=== PATIENT | female | born 1980 | race Caucasian/White ===

== ENCOUNTER 2017-09-27 15:02 | Emergency (ER) | payer SELFPAY ==
[~2017-09-27] VITALS: Ht 160 cm; Wt 54.4 kg
[2017-09-27] MEDS ORDERED: CYCL10 PO (17:17)
[2017-09-27] MEDS ORDERED: IBUP800 PO (17:17)
== END 2017-09-27 17:27 | disposition home or self-care (01) ==
LOC: ER 15:02
DX: F07.81 Postconcussional syndrome (principal); M54.5 Low back pain; F17.200 Nicotine dependence, unspecified, uncomplicated
CPT/HCPCS: 70450; 72100; 99284